=== PATIENT | male | born 1960 | race Caucasian/White ===

== ENCOUNTER 2020-10-24 07:34 | Emergency (ER) | payer OTHER ==
[~2020-10-24] VITALS: Ht 182.9 cm; Wt 93.0 kg
[2020-10-24 07:45] VITALS: Ht 182.9 cm; Wt 93.0 kg
[2020-10-24 09:43] VITALS: BP 178/85
== END 2020-10-24 09:43 | disposition home or self-care (01) ==
LOC: ED 07:34
DX: M54.5 Low back pain (principal); G89.29 Other chronic pain
CPT/HCPCS: J1885; J2270